=== PATIENT | female | born 1985 | race Caucasian/White ===

== ENCOUNTER → 2018-01-06 | Outpatient (CLI) | payer SELFPAY ==
[~2018-01-06] MED LIST: ACYC800 PO; CEPH500 PO; CRUTCH4 USE; ERYT.5TO OS; HYDACE5 PO; IBUP600 PO; IBUP800 PO; OXYACE5T PO; PRED20 PO; PROM25 PO; RXPROM25 PO; TRAM50 PO
== END ==
LOC: LAB 12:39 → LAB SHORT 12:39
PROVIDERS: Registered Nurse Community Health
DX: Z12.4 Encounter for screening for malignant neoplasm of cervix (principal)
CPT/HCPCS: 87624; G0123

== ENCOUNTER 2018-03-05 09:56 | Day surgery (SDC) | payer BC ==
[~2018-03-05] VITALS: Ht 172.7 cm; Wt 128.6 kg
[~2018-03-05 09:56] MED LIST changes: +VITAMIN D PO
== END 2018-03-05 14:46 | disposition home or self-care (01) ==
LOC: ORSCSDS 09:56
PROVIDERS: Obstetrics & Gynecology
PROC: 0UT74ZZ Resection of Bilateral Fallopian Tubes, Percutaneous Endoscopic Approach (ICD-10-PCS; principal; 2018-03-05 11:00)
DX: Z30.2 Encounter for sterilization (principal); N80.3 Endometriosis of pelvic peritoneum; I10 Essential (primary) hypertension; E66.01 Morbid (severe) obesity due to excess calories; Z68.41 Body mass index [BMI] 40.0-44.9, adult; F17.210 Nicotine dependence, cigarettes, uncomplicated
CPT/HCPCS: 88302; J0171; J0690; J1100; J1885; J2250; J2405; J2710; J3010; J7040; J7120

== ENCOUNTER 2021-08-02 22:44 | Emergency (ER) | payer BC ==
[~2021-08-02] VITALS: Ht 170.2 cm; Wt 113.4 kg
[2021-08-03 00:05] LABS: BASOPHILS ABSOLUTE AUTO 0.05 K/mm3 (0.00-0.23); BASOPHILS PERCENT AUTO 0 % (0-2); EOSINOPHILS ABSOLUTE AUTO 0.07 K/mm3 (0.00-0.68); EOSINOPHILS PERCENT AUTO 1 % (0-6); Hemoglobin 13.7 g/dL (11.5-16.0); IMMATURE GRAN ABSOLUTE AUTO 0.06 K/mm3 (0.00-0.10); IMMATURE GRAN PERCENT AUTO 1 % (0-1); LYMPHOCYTES ABSOLUTE AUTO 1.74 K/mm3 (0.84-5.20); LYMPHOCYTES PERCENT AUTO 14 % (21-46); MONOCYTES ABSOLUTE AUTO 0.63 K/mm3 (0.16-1.47); MONOCYTES PERCENT AUTO 5 % (4-13); Mean Corpuscular HGB 30.6 pg (26.0-34.0); Mean Corpuscular HGB Conc 32.6 g/dL (31.5-36.5); Mean Corpuscular Volume 94 fL (80-100); Mean Platelet Volume 9.8 fL (9.1-12.4); NEUTROPHILS ABSOLUTE AUTO 10.05 K/mm3 (1.96-9.15); NEUTROPHILS PERCENT AUTO 80 % (41-73); Platelet Count 373 K/mm3 (150-400); RDW Coefficient Variation 13.2 % (11.7-14.2); RDW Standard Deviation 45.1 fL (35.1-46.3); Red Blood Cell Count 4.48 M/mm3 (3.80-5.20)
[2021-08-03 00:26] LABS: Alanine Aminotransfer (ALT/SGP 37 U/L (12-78); Albumin, Blood 3.5 g/dL (3.4-5.0); Albumin/Globulin Ratio 0.9 (0.8-1.8); Alk Phos 128 U/L (50-136); Anion Gap 7 mmol/L (6-16); Aspartate Aminotrans (AST/SGOT 16 U/L (12-37); Bilirubin, Total 0.2 mg/dL (0.1-1.0); Blood Urea Nitrogen 20 mg/dL (8-24); Bun/Creatinine Ratio 26.6 (12.0-20.0); CO2, Blood 25 mmol/L (21-32); Calcium, Blood 9.4 mg/dL (8.5-10.1); Chloride, Blood 108 mmol/L (98-108); Creatinine, Blood 0.75 mg/dL (0.40-1.00); Globulin, Blood 3.8 g/dL (2.2-4.0); Glomerular Filtration Rate >60 (60-); Glucose, Blood 121 mg/dL (70-99); Potassium, Blood 3.9 mmol/L (3.5-5.5); Sodium, Blood 140 mmol/L (136-145); Total Protein, Blood 7.3 g/dL (6.4-8.2); Troponin I <0.015 ng/mL (0.000-0.040)
[2021-08-03] MEDS ORDERED: FAMO20 PO (01:43)
== END 2021-08-03 01:53 | disposition home or self-care (01) ==
LOC: ER 22:44
PROVIDERS: Physician Assistant
DX: R07.2 Precordial pain (principal); R10.13 Epigastric pain; I10 Essential (primary) hypertension; F17.200 Nicotine dependence, unspecified, uncomplicated
CPT/HCPCS: 36415; 71046; 80053; 83690; 84484; 85025; 93005; 93010; 99285-25; A9270

== ENCOUNTER 2021-10-18 08:44 | Day surgery (SDC) | payer BC ==
[~2021-10-18] VITALS: Ht 170.2 cm; Wt 118.6 kg
[~2021-10-18 08:44] MED LIST changes: +FAMO20 PO
[2021-10-18] MEDS ORDERED: OMEP20ER (09:35)
--- NOTE | 2021-10-18 11:31 | NUR ---
10/18/21 1131 Kay Remy ISOVUE 300 50 ML USED IN SURGERY BY DR CRAIG FOR CHOLANGIOGRAM.
--- NOTE | 2021-10-18 13:37 | NUR ---
10/18/21 [id number] [address] CRAIG @ BEDSIDE TO EVALUATE PATIENT. MD STATES SHE SPOKE WITH FAMILY REGARDING PLAN OF CARE. WILL CONTINUE TO MONITOR, UNTIL CLEARED BY SURGEON.
--- NOTE | 2021-10-18 15:12 | NUR ---
10/18/21 1512 Candy Rice @ 2103 DR. CRAIG @ BEDSIDE TO DISCUSS PLAN OF CARE, PATIENT VERABLIZE UNDERSTANDING. STATES OK TO DISCHARGE
== END 2021-10-18 14:45 | disposition home or self-care (01) ==
LOC: ORSCSDS 08:44
PROVIDERS: Surgery
PROC: 0FT44ZZ Resection of Gallbladder, Percutaneous Endoscopic Approach (ICD-10-PCS; principal; 2021-10-18 10:00)
PROC: BF031ZZ Plain Radiography of Gallbladder and Bile Ducts using Low Osmolar Contrast (ICD-10-PCS; principal; 2021-10-18 10:00)
DX: K80.10 Calculus of gallbladder with chronic cholecystitis without obstruction (principal); I10 Essential (primary) hypertension; F17.210 Nicotine dependence, cigarettes, uncomplicated; K21.9 Gastro-esophageal reflux disease without esophagitis; E66.01 Morbid (severe) obesity due to excess calories; Z68.41 Body mass index [BMI] 40.0-44.9, adult; Z79.899 Other long term (current) drug therapy
CPT/HCPCS: 74300; 88304; A9270; C1726; C1729; J0690; J1100; J1885; J2270; J2405; J2550; J2704; J2710; J3010; J7120

== ENCOUNTER → 2022-10-06 | Outpatient (CLI) | payer OTHER ==
[~2022-10-06] MED LIST changes: +OMEP20ER
[2022-10-08 18:10] LABS: HPV 16 Negative (Negative); HPV 18 Negative (Negative); HPV OTHER HR TYPES Negative (Negative)
== END | disposition home or self-care (01) ==
LOC: LAB 17:45 → LAB SHORT 17:45
PROVIDERS: Family Medicine
DX: Z12.4 Encounter for screening for malignant neoplasm of cervix (principal)
CPT/HCPCS: 87624; G0145

== ENCOUNTER → 2022-10-06 | Outpatient (CLI) | payer OTHER | LOC: LAB SHORT 07:55 → PLD 07:55 | DX: N92.1 Excessive and frequent menstruation with irregular cycle (principal) | CPT/HCPCS: 88305 ==

== ENCOUNTER → 2023-03-30 | Outpatient (CLI) | payer OTHER ==
[2023-03-30 10:41] LABS: BASOPHILS ABSOLUTE AUTO 0.06 K/mm3 (0.00-0.23); BASOPHILS PERCENT AUTO 1 % (0-2); EOSINOPHILS ABSOLUTE AUTO 0.09 K/mm3 (0.00-0.68); EOSINOPHILS PERCENT AUTO 1 % (0-6); Hematocrit 43.5 % (33.0-51.0); Hemoglobin 14.9 g/dL (11.5-16.0); IMMATURE GRAN ABSOLUTE AUTO 0.08 K/mm3 (0.00-0.10); IMMATURE GRAN PERCENT AUTO 1 % (0-1); LYMPHOCYTES ABSOLUTE AUTO 1.85 K/mm3 (0.84-5.20); LYMPHOCYTES PERCENT AUTO 16 % (21-46); MONOCYTES ABSOLUTE AUTO 0.56 K/mm3 (0.16-1.47); MONOCYTES PERCENT AUTO 5 % (4-13); Mean Corpuscular HGB 31.1 pg (26.0-34.0); Mean Corpuscular HGB Conc 34.3 g/dL (31.5-36.5); Mean Corpuscular Volume 91 fL (80-100); Mean Platelet Volume 10.1 fL (9.1-12.4); NEUTROPHILS ABSOLUTE AUTO 8.81 K/mm3 (1.96-9.15); NEUTROPHILS PERCENT AUTO 77 % (41-73); Platelet Count 385 K/mm3 (150-400); RDW Coefficient Variation 13.6 % (11.7-14.2); Red Blood Cell Count 4.79 M/mm3 (3.80-5.20); White Blood Cell Count 11.45 K/mm3 (4.00-11.30)
[2023-03-30 11:05] LABS: Albumin, Blood 3.8 g/dL (3.4-5.0); Bilirubin, Total 0.3 mg/dL (0.1-1.0); Bun/Creatinine Ratio 23.2 (12.0-20.0); Calcium, Blood 9.5 mg/dL (8.5-10.1); Creatinine, Blood 0.82 mg/dL (0.40-1.00); Potassium, Blood 3.9 mmol/L (3.5-5.5); Thyroid Stimulating Hormone 2.549 uIU/mL (0.360-4.800); Total Protein, Blood 7.8 g/dL (6.4-8.2)
== END | disposition home or self-care (01) ==
LOC: LAB SHORT 10:25
PROVIDERS: Physician Assistant
DX: R53.83 Other fatigue (principal)
CPT/HCPCS: 80053; 84443; 85025

== ENCOUNTER → 2023-05-07 | Outpatient (CLI) | payer OTHER ==
[2023-05-07 15:54] LABS: Campylobacter Sp Not Detected (NOT DETECT); Enteroaggregative E. coli-EAEC Not Detected (NOT DETECT); Enteropathogenic E. coli-EPEC Not Detected (NOT DETECT); Enterotoxigenic E. coli-ETEC Not Detected (NOT DETECT); Plesiomonas Shigelloides Not Detected (NOT DETECT); Salmonella Sp Not Detected (NOT DETECT); Vibrio Cholerae Not Detected (NOT DETECT); Vibrio Sp Not Detected (NOT DETECT); Yersinia Enterocolitica Not Detected (NOT DETECT)
[2023-05-07 15:55] LABS: Adenovirus F 40/41 Not Detected (NOT DETECT); Astrovirus Not Detected (NOT DETECT); Cryptosporidium Not Detected (NOT DETECT); Cyclospora Cayetanensis Not Detected (NOT DETECT); E. Coli O157 Not Detected (NOT DETECT); Entamoeba Histolytica Not Detected (NOT DETECT); Giardia Lamblia Not Detected (NOT DETECT); Norovirus GI/GII Not Detected (NOT DETECT); Rotavirus A Not Detected (NOT DETECT); Sapovirus Not Detected (NOT DETECT); Shiga Toxin-prod E. coli-STEC Not Detected (NOT DETECT); Shigella/Enteroin E. coli-EIEC Not Detected (NOT DETECT)
== END | disposition home or self-care (01) ==
LOC: LAB 13:08 → LAB SHORT 13:08
PROVIDERS: Family Medicine
DX: K52.9 Noninfective gastroenteritis and colitis, unspecified (principal)
CPT/HCPCS: 87507

== ENCOUNTER 2023-10-30 06:22 | Day surgery (SDC) | payer OTHER ==
[~2023-10-30] VITALS: Ht 170.2 cm; Wt 129.5 kg
[~2023-10-30 06:22] MED LIST changes: +Cyclobenzaprine5 MG PO; +IBUP200 PO; +Lactated Ringer's 1,000 ML IV SCH; +MAGNESIUM PO; +Vitamin B Comple1 EA; +ZINC15 PO
[2023-10-30 06:48] VITALS: BP 172/94
[2023-10-30] MEDS ORDERED: propofoL 40 ML IV ONE (07:07)
--- NOTE | 2023-10-30 07:16 | NUR ---
Ambulatory in Day SurgeryPre-Op teaching done. Pt verbalizes understanding. History, Chart, Medications and Allergies reviewed before start of procedure.Patient confirms NPO status and agrees with scheduled surgery. Patient States Post-Procedure ride home has been arranged.
--- NOTE | 2023-10-30 07:41 | NUR ---
10/30/23 [address] MORIN; SEE ANESTHESIA RECORDS.
[2023-10-30] MEDS ORDERED: propofoL 20 ML IV ONE (07:47)
[2023-10-30 08:16] VITALS: BP 123/54
[2023-10-30 08:33] VITALS: BP 123/60
--- NOTE | 2023-10-30 08:49 | NUR ---
DISCHARGE NOTE PT A&OX4, BREATHING RA, TOLERATING PO FLUIDS, FIANCEE AT BEDSIDE. NO COMPLAINTS, ABDOMEN REMAINS SOFT AND NON-TENDER. Patient up to Ambulate independently. Gait steady.PT VOIDED PRIOR TO DISCHARGE. Discharge instructions reviewed with patient. Patient verbalizes understanding. Copy given to patient to take home. Discharged via wheelchair to private car for ride home.
== END 2023-10-30 08:45 | disposition home or self-care (01) ==
LOC: ORSCMMR 06:22 → ORD 07:30 → ORSCMMR 08:45
PROVIDERS: Surgery
PROC: 0DBE8ZX Excision of Large Intestine, Via Natural or Artificial Opening Endoscopic, Diagnostic (ICD-10-PCS; principal; 2023-10-30 07:30)
PROC: 0DB98ZX Excision of Duodenum, Via Natural or Artificial Opening Endoscopic, Diagnostic (ICD-10-PCS; principal; 2023-10-30 07:30)
PROC: 0DBP8ZX Excision of Rectum, Via Natural or Artificial Opening Endoscopic, Diagnostic (ICD-10-PCS; principal; 2023-10-30 07:30)
PROC: 0DB68ZX Excision of Stomach, Via Natural or Artificial Opening Endoscopic, Diagnostic (ICD-10-PCS; principal; 2023-10-30 07:30)
DX: R14.0 Abdominal distension (gaseous) (principal); R19.4 Change in bowel habit; K52.9 Noninfective gastroenteritis and colitis, unspecified; K43.2 Incisional hernia without obstruction or gangrene; K62.1 Rectal polyp; I10 Essential (primary) hypertension; F17.210 Nicotine dependence, cigarettes, uncomplicated; E66.01 Morbid (severe) obesity due to excess calories; Z68.41 Body mass index [BMI] 40.0-44.9, adult
CPT/HCPCS: 88305; 88342; J2704; J7120

== ENCOUNTER 2024-11-07 08:33 | Emergency (ER) | payer OTHER ==
[~2024-11-07] VITALS: Ht 170.2 cm; Wt 129.3 kg
[~2024-11-07 08:33] MED LIST changes: -Lactated Ringer's 1,000 ML IV SCH
[2024-11-07] MEDS ORDERED: Ketorolac Tromethamine 15mg Vial IV ONE (09:10)
[2024-11-07] MEDS ORDERED: Ondansetron HCl 2 MG / ML 2ML Vial IV ONE (09:10)
[2024-11-07 09:29] LABS: Source, Urine Clean Catch
[2024-11-07 09:51] LABS: Appearance, Urine Clear (Clear); Bilirubin, Urine Neg (Neg); Blood, Urine Neg (Neg); Color, Urine Yellow (P-Yellow); Glucose Qualitative, Urine Neg (Neg); Ketones, Urine Neg (Neg); Leukocyte Esterase, Urine Neg (Neg); Nitrite, Urine Neg (Neg); Protein, Urine Neg (Neg); Specific Gravity, Urine 1.015 (1.003-1.022); Urobilinogen, Urine NORM (Normal)
[2024-11-07 09:53] LABS: BASOPHILS ABSOLUTE AUTO 0.04 K/mm3 (0.00-0.23); BASOPHILS PERCENT AUTO 0 % (0-2); EOSINOPHILS ABSOLUTE AUTO 0.08 K/mm3 (0.00-0.68); EOSINOPHILS PERCENT AUTO 1 % (0-6); Hematocrit 40.2 % (33.0-51.0); Hemoglobin 13.2 g/dL (11.5-16.0); IMMATURE GRAN ABSOLUTE AUTO 0.05 K/mm3 (0.00-0.10); IMMATURE GRAN PERCENT AUTO 1 % (0-1); LYMPHOCYTES ABSOLUTE AUTO 1.61 K/mm3 (0.84-5.20); LYMPHOCYTES PERCENT AUTO 17 % (21-46); MONOCYTES ABSOLUTE AUTO 0.52 K/mm3 (0.16-1.47); MONOCYTES PERCENT AUTO 5 % (4-13); Mean Corpuscular HGB 30.8 pg (26.0-34.0); Mean Corpuscular HGB Conc 32.8 g/dL (31.5-36.5); Mean Corpuscular Volume 94 fL (80-100); Mean Platelet Volume 9.9 fL (9.1-12.4); NEUTROPHILS ABSOLUTE AUTO 7.34 K/mm3 (1.96-9.15); NEUTROPHILS PERCENT AUTO 76 % (41-73); Platelet Count 364 K/mm3 (150-400); RDW Coefficient Variation 12.9 % (11.7-14.2); RDW Standard Deviation 44.5 fL (35.1-46.3); Red Blood Cell Count 4.28 M/mm3 (3.80-5.20); White Blood Cell Count 9.64 K/mm3 (4.00-11.30)
[2024-11-07 10:16] LABS: Albumin, Blood 3.4 g/dL (3.4-5.0); Bilirubin, Total 0.2 mg/dL (0.1-1.0); Bun/Creatinine Ratio 16.5 (12.0-20.0); Calcium, Blood 8.9 mg/dL (8.5-10.1); Creatinine, Blood 0.73 mg/dL (0.40-1.00); Globulin, Blood 3.3 g/dL (2.2-4.0); Potassium, Blood 4.2 mmol/L (3.5-5.5); Total Protein, Blood 6.7 g/dL (6.4-8.2)
[2024-11-07 11:35] VITALS: BP 131/72
[2024-11-07] MEDS ORDERED: TIZA4 PO ×2 (11:51→11:52)
[2024-11-07] MEDS ORDERED: LIDO700A20 TOP ×2 (11:51→11:52)
== END 2024-11-07 12:01 | disposition home or self-care (01) ==
LOC: ER 08:33
PROVIDERS: Physician Assistant
DX: M54.9 Dorsalgia, unspecified (principal); I10 Essential (primary) hypertension; F17.200 Nicotine dependence, unspecified, uncomplicated; Z79.899 Other long term (current) drug therapy; Z59.89 Other problems related to housing and economic circumstances
CPT/HCPCS: 74177; 80053; 81003; 81025; 85025; 96374-59; 96375; 99284-25; J1885; J2405; Q9967

== ENCOUNTER 2025-04-13 19:38 | Emergency (ER) | payer OTHER ==
[~2025-04-13] VITALS: Ht 172.7 cm; Wt 124.7 kg
[~2025-04-13 19:38] MED LIST changes: +LIDO700A20 TOP; +TIZA4 PO
[2025-04-13] MEDS ORDERED: Ondansetron HCl 2 MG / ML 2ML Vial IV PRN (19:55)
[2025-04-13 20:13] LABS: BASOPHILS ABSOLUTE AUTO 0.04 K/mm3 (0.00-0.23); BASOPHILS PERCENT AUTO 0 % (0-2); EOSINOPHILS ABSOLUTE AUTO 0.08 K/mm3 (0.00-0.68); EOSINOPHILS PERCENT AUTO 1 % (0-6); Hematocrit 45.5 % (33.0-51.0); Hemoglobin 14.5 g/dL (11.5-16.0); IMMATURE GRAN ABSOLUTE AUTO 0.05 K/mm3 (0.00-0.10); IMMATURE GRAN PERCENT AUTO 0 % (0-1); LYMPHOCYTES ABSOLUTE AUTO 2.05 K/mm3 (0.84-5.20); LYMPHOCYTES PERCENT AUTO 17 % (21-46); MONOCYTES ABSOLUTE AUTO 0.92 K/mm3 (0.16-1.47); MONOCYTES PERCENT AUTO 8 % (4-13); Mean Corpuscular HGB Conc 31.9 g/dL (31.5-36.5); Mean Corpuscular Volume 96 fL (80-100); NEUTROPHILS ABSOLUTE AUTO 9.07 K/mm3 (1.96-9.15); NEUTROPHILS PERCENT AUTO 74 % (41-73); NRBC ABSOLUTE 0.00 K/mm3 (0.00-0.02); NRBC Auto 0.0 /100 WBC (0.0-0.2); Platelet Count 353 K/mm3 (150-400); RDW Coefficient Variation 13.3 % (11.7-14.2); RDW Standard Deviation 47.6 fL (35.1-46.3)
[2025-04-13 20:22] LABS: Source, Urine Clean Catch
[2025-04-13 20:34] LABS: Bilirubin, Urine Neg (Neg); Color, Urine Yellow (P-Yellow); Glucose Qualitative, Urine Neg (Neg); Ketones, Urine Neg (Neg); Leukocyte Esterase, Urine Neg (Neg); Protein, Urine Neg (Neg); Specific Gravity, Urine 1.010 (1.003-1.022); Urobilinogen, Urine NORM (Normal)
[2025-04-13 20:56] LABS: Alanine Aminotransfer (ALT/SGP 66.0 U/L (12-78); Albumin, Blood 3.6 g/dL (3.4-5.0); Albumin/Globulin Ratio 1.0 (0.8-1.8); Anion Gap 8.0 mmol/L (3-11); Aspartate Aminotrans (AST/SGOT 39.0 U/L (12-37); Bilirubin, Total 0.6 mg/dL (0.1-1.0); Blood Urea Nitrogen 10.0 mg/dL (8-24); CO2, Blood 25.0 mmol/L (21-32); Calcium, Blood 8.6 mg/dL (8.5-10.1); Chloride, Blood 105.0 mmol/L (98-108); Creatinine, Blood 0.81 mg/dL (0.40-1.00); Globulin, Blood 3.7 g/dL (2.2-4.0); Glucose, Blood 86.0 mg/dL (70-99); Potassium, Blood 3.5 mmol/L (3.5-5.5); Sodium, Blood 134.0 mmol/L (136-145); Total Protein, Blood 7.3 g/dL (6.4-8.2)
[2025-04-13] MEDS ORDERED: Phentermine HCl30 MG (22:05)
[2025-04-13] MEDS ORDERED: Norco 5-325 Ta1 EACH PO (22:05)
[2025-04-13] MEDS ORDERED: ONDA4 PO (22:28)
[2025-04-13] MEDS ORDERED: FAMO20 PO (22:28)
[2025-04-13 22:30] VITALS: BP 143/82
== END 2025-04-13 22:41 | disposition home or self-care (01) ==
LOC: ER 19:38
PROVIDERS: Emergency Medicine
DX: R10.13 Epigastric pain (principal); I10 Essential (primary) hypertension; Z90.89 Acquired absence of other organs; F17.200 Nicotine dependence, unspecified, uncomplicated
CPT/HCPCS: 80053; 81003; 83690; 85025; 96374; 99284-25; J2405